=== PATIENT | female | born 2000 | race Two or more races ===

== ENCOUNTER 2022-11-04 12:22 | Outpatient (CLI) | payer OTHER | END 2022-11-04 14:25 | disposition home or self-care (01) | LOC: PRENATAL 12:22 | PROVIDERS: ATTEND Obstetrics & Gynecology Maternal & Fetal Medicine | DX: O35.9XX0 Maternal care for (suspected) fetal abnormality and damage, unspecified, not applicable or unspecified (principal); O35.3XX0 Maternal care for (suspected) damage to fetus from viral disease in mother, not applicable or unspecified; Z3A.28 28 weeks gestation of pregnancy ==

== ENCOUNTER 2023-01-12 14:00 | Inpatient (IN) | payer OTHER ==
[~2023-01-12] VITALS: Ht 172.7 cm; Wt 69.4 kg
[2023-01-18] MEDS ORDERED: PRENATAL TABLE1 EAC1 PO (06:48)
== END 2023-01-20 13:18 | disposition home or self-care (01) | DRG 807 ==
LOC: LDR 01-18 06:22 → OB/GYN 01-18 06:22
PROVIDERS: ADMIT Obstetrics & Gynecology; ATTEND Obstetrics & Gynecology
PROC: 10E0XZZ Delivery of Products of Conception, External Approach (ICD-10-PCS; principal; 2023-01-18)
PROC: 0UQG7ZZ Repair Vagina, Via Natural or Artificial Opening (ICD-10-PCS; 2023-01-18)
PROC: 4A1HXCZ Monitoring of Products of Conception, Cardiac Rate, External Approach (ICD-10-PCS; 2023-01-18)
DX: O71.4 Obstetric high vaginal laceration alone (principal); Z37.0 Single live birth; Z3A.39 39 weeks gestation of pregnancy; Z20.822 Contact with and (suspected) exposure to COVID-19

== ENCOUNTER → 2024-04-23 14:27 | Outpatient (CLI) | payer OTHER ==
[~2024-04-23 14:27] MED LIST: PRENATAL TABLE1 EAC1 PO
== END | disposition home or self-care (01) ==
LOC: PRENATAL 14:27
PROVIDERS: ATTEND Obstetrics & Gynecology Maternal & Fetal Medicine
DX: Z76.1 Encounter for health supervision and care of foundling (principal)

== ENCOUNTER → 2024-08-24 11:00 | Outpatient (CLI) | payer OTHER | END | disposition home or self-care (01) | LOC: PRENATAL 11:00 | PROVIDERS: ATTEND Obstetrics & Gynecology Maternal & Fetal Medicine | DX: O44.00 Complete placenta previa NOS or without hemorrhage, unspecified trimester (principal); O36.8199 Decreased fetal movements, unspecified trimester, other fetus; Z3A.33 33 weeks gestation of pregnancy ==

== ENCOUNTER 2024-10-09 10:49 | Inpatient (IN) | payer OTHER ==
[2024-10-09] VITALS (7 sets, daily range): BP systolic 97–107; BP diastolic 61–78
[~2024-10-09] VITALS: Ht 152.4 cm; Wt 77.1 kg
[2024-10-09 11:38] LABS: HEMATOCRIT 32.6 % (36.0-45.00); MEAN CELL VOLUME 79.4 fL (80.00-100.00); MEAN CORPUSCULAR HGB CONC 32.8 g/dl (32.0-36.0); PLATELET COUNT 248 K/uL (150-450); RED CELL DISTRIBUTION WIDTH 16.6 % (11.5-14.5)
[2024-10-09 11:40] LABS: HEMOGLOBIN 10.7 g/dL (12.0-15.00)
[2024-10-09 11:54] LABS: PH,URINE 6.5 (5.0-8.0); URINE APPEARANCE Clear; URINE BILIRRUBIN Negative (NEGATIVE); URINE BLOOD Trace; URINE COLOR Yellow; URINE GLUCOSE Negative (NEGATIVE); URINE KETONE Trace (NEGATIVE); URINE LEUKOCYTE Small; URINE NITRATE Negative; URINE PROTEIN Negative (NEGATIVE)
[2024-10-09 11:58] LABS: URINE BACTERIA 496.9 uL (0.0-1933); URINE EPITHELIAL CELLS 29.7 uL (0.0-38.8); URINE RBC 3.8 uL (0.0-20.8); URINE WBC 31.3 uL (0.0-23.2)
[2024-10-09 12:10] LABS: INR 0.94; PARTIAL THROMBOPLASTIN TIME 28.8 SECONDS (22.0-34.0); PROTHROMBIN TIME 10.3 SECONDS (9.0-11.5)
[2024-10-09] MEDS ORDERED: CHLORHEXIDINE GLUCONATE 120 ML BOTTLE TOP ONE ×2 (12:42→16:45)
[2024-10-09] MEDS ORDERED: ERYTHROMYCIN BASE OPHT 1GM EACH TUBE OP ONE ×2 (12:42→16:45)
[2024-10-09] MEDS ORDERED: OXYTOCIN 20 UNITS/1000ML RL PIGGYBAG IV ONE (12:42)
[2024-10-09] MEDS ORDERED: LIDOCAINE HCL 1% 10ML VIAL ONE (12:43)
[2024-10-09] MEDS ORDERED: OXYTOCIN 20 UNITS/500ML RL PIGGYBAG IV ONE (12:43)
[2024-10-09] MEDS ORDERED: OXYTOCIN 500 ML IV SCH (13:00)
[2024-10-09] MEDS ORDERED: OXYTOCIN 1,000 ML IV SCH (16:45)
[2024-10-09] MEDS ORDERED: LIDOCAINE HCL 1% 10ML VIAL IJ ONE (16:45)
[2024-10-09] MEDS ORDERED: IBUprofen 400 MG TABLET PO PRN (18:00)
[2024-10-10 02:06] VITALS: BP 101/66
[2024-10-10 06:18] LABS: HEMATOCRIT 28.7 % (36.0-45.00); HEMOGLOBIN 9.6 g/dL (12.0-15.00); MEAN CELL VOLUME 78.4 fL (80.00-100.00); MEAN CORPUSCULAR HEMOGLOBIN 26.2 pg (27.00-32.0); MEAN CORPUSCULAR HGB CONC 33.4 g/dl (32.0-36.0); PLATELET COUNT 231 K/uL (150-450); RED BLOOD COUNT 3.66 M/uL (4.00-6.00); RED CELL DISTRIBUTION WIDTH 16.6 % (11.5-14.5)
[2024-10-10] MEDS ORDERED: PNV,CALCIUM 72/IRON/FOLIC ACID 1 TAB TABLET PO SCH (09:00)
[2024-10-10 09:06] VITALS: BP 76/46
[2024-10-10 09:15] VITALS: BP 76/46
[2024-10-10 20:34] VITALS: BP 100/64
[2024-10-11] VITALS: BP 102/70
[2024-10-11 08:00] VITALS: BP 100/66
== END 2024-10-11 14:01 | disposition home or self-care (01) | DRG 807 ==
LOC: LDR 10:49 → OB/GYN 10:49
PROVIDERS: ADMIT Obstetrics & Gynecology; ATTEND Obstetrics & Gynecology
PROC: 10E0XZZ Delivery of Products of Conception, External Approach (ICD-10-PCS; principal; 2024-10-09)
PROC: 0UQG7ZZ Repair Vagina, Via Natural or Artificial Opening (ICD-10-PCS; 2024-10-09)
PROC: 0UQMXZZ Repair Vulva, External Approach (ICD-10-PCS; 2024-10-09)
PROC: 4A1HXCZ Monitoring of Products of Conception, Cardiac Rate, External Approach (ICD-10-PCS; 2024-10-09)
DX: O71.4 Obstetric high vaginal laceration alone (principal); O71.82 Other specified trauma to perineum and vulva; Z37.0 Single live birth; Z3A.38 38 weeks gestation of pregnancy